=== PATIENT | male | born 1950 | race Caucasian/White ===

== ENCOUNTER → 2017-05-28 12:44 | Outpatient (CLI) | payer SELFPAY ==
[2011-05-18 10:24] VITALS: BMI 38.8
--- NOTE | 2017-05-28 14:26 | NUR ---
Nutrition education for pre/post of bariatric sugery: S: Pt reports he overeats at all meals. Pts cooks most meals at home. Pt likes to eat sweets and snacks throughout the day. Pts daughter had gastric sleeve surgery in [place] ~1 1/2 years ago and has lost ~97#. Pts son-in-law has had a gastic by-pass ~1 year ago. O: 67 year old male Ht: 5'11" Wt: 315# IBW: 178# +/-10% BMI: 43.9 PMH: sleep apnea, COPD, prediabetes, O2 at night, CAD s/p stents A: Reviewed pre/post op diet phases; reviewed sample menus; liquids between meals; no carbonated drinks, alcohol, straws, sweets, high fat foods; protein requirements; stomach size and pouch stretching; protein supplement guidelines. Pt with fair understanding of information provided. Pt may not be ready to make the necessary diet changes needed for long-term weight loss success. Advised pt to start decreasing his portions of food now to learn what hunger satisfied feels like. Pt also advised to start chewing food at least 20 times to slow down eating. Pts first goal wt was 169#. RDN advised pt that weight was not realistic and he changed his goal wt to 225#. Pt does verbalize understanding of diet changes post-op; however, RDN if not sure he fully understands the progression of the diet. Pts motivation for change appears to be high. P: Provided pt with printed diet information and RDN name and phone number. Pt may need additional diet instruction before surgery. RDN will be available if needed. Thank you for the consult.
== END ==
LOC: D.FANS 12:44
DX: Z01.812 Encounter for preprocedural laboratory examination (principal)

== ENCOUNTER → 2017-08-06 13:48 | Outpatient (CLI) | payer MEDICARE ==
[2011-05-18 10:24] VITALS: BMI 38.8
[~2017-08-06 13:48] MED LIST: APPLE CIDER VINEGAR PO; ASCORBIC ACID500 MG PO; ASPIRIN325 MG PO; BETAPACE 80 MG80 MG PO; BREO ELLIPTA 11 EACH INH; CINNAMON500 MG PO; COREG12.5 MG PO; FISH OIL 1,0001 CA1 PO; FOLATE0.4 MG PO; GALZIN50 MG PO; GARLIC PO; GINSENG PO; HYDROCODON-ACE1 EAC7 PO; LOVASTATIN10 MG PO; MULTI-DAY VITAM1 TAB PO; PROAIR HFA8.5 GM INH; PYRIDOXINE HCL100 MG PO; TESTOSTERON200 MG/ML IM; TUMS X-STR300 MG PO; VITAMIN B-122500 MCG PO; VITAMIN E200 UNI1 PO; [UNRECOGNIZED DRUG - REMARK] INH
[2017-09-16 20:43] VITALS: BMI 42.2
== END | disposition home or self-care (01) ==
LOC: D.RT 13:48
DX: J44.9 Chronic obstructive pulmonary disease, unspecified (principal)

== ENCOUNTER → 2017-08-09 10:12 | Outpatient (CLI) | payer MEDICARE ==
[2011-05-18 10:24] VITALS: BMI 38.8
[2017-09-16 20:43] VITALS: BMI 42.2
== END | disposition home or self-care (01) ==
LOC: D.LAB 10:00 → D.RAD 10:30
DX: E66.01 Morbid (severe) obesity due to excess calories (principal)

== ENCOUNTER 2017-08-14 06:03 | Day surgery (SDC) | payer MEDICARE ==
[2017-08-09 10:53] LABS: BASOPHILS 0.5 % (0-2); EOSINOPHILS 2.7 % (0-7); HEMATOCRIT 52.5 % (42.0-54.0); HEMOGLOBIN 17.4 g/dL (13.5-17.5); IMMATURE GRANULOCYTES 0.2 % (0-5); LYMPHOCYTES 22.9 % (15-50); MCH 30.7 pg (26.0-34.0); MCHC 33.1 g/dL (31.0-37.0); MCV 92.6 fL (80.0-100.0); MEAN PLATELET VOLUME 12.3 fL (7.4-10.4); MONOCYTES 6.7 % (2-11); PLATELET COUNT 110 10x3/uL (130-400); RBC 5.67 10x6/uL (4.20-6.10); RDW 15.3 % (11.5-14.5); WBC 5.9 10x3/uL (4.8-10.8)
[2017-08-09 11:20] LABS: ALBUMIN 3.8 g/dL (3.4-5.0); ANION GAP 8.8 mmol/L (8-16); BILIRUBIN - DIRECT 0.26 mg/dL (0.00-0.30); BILIRUBIN - INDIRECT 1.44 mg/dL (0.00-1.00); BILIRUBIN - TOTAL 1.7 mg/dL (0.2-1.3); CALCIUM 9.1 mg/dL (8.5-10.1); CARBON DIOXIDE 32.4 mmol/L (21.0-32.0); CHOL - HDL RATIO 4.5 ratio (2.3-4.9); CREATININE - SERUM 1.1 mg/dL (0.6-1.3); LDL-HDL RATIO 2.6 ratio (1.5-3.5); POTASSIUM - SERUM 4.2 mmol/L (3.5-5.1); PROTEIN - SERUM 7.3 g/dL (6.4-8.2); T4 THYROXINE 5.6 ug/dL (4.7-13.3); THYROID STIMULATING HORMONE 3.18 uIU/mL (0.36-3.74)
[2017-08-09 11:32] LABS: HELICOBACTER PYLORI IGG POSITIVE (NEGATIVE)
[2017-08-10 08:17] LABS: FOLATE (FOLIC ACID) - SERUM >20.0 ng/mL (>3.0)
[2017-08-12 06:07] LABS: VITAMIN D 25 HYDROXY 30.2 ng/mL (30.0-100.0)
[2017-08-14] MEDS ORDERED: COREG12.5 MG PO (07:48)
[2017-08-14] MEDS ORDERED: TESTOSTERON200 MG/ML IM (07:49)
[2017-08-14] MEDS ORDERED: BETAPACE 80 MG80 MG PO (07:49)
[2017-08-14] MEDS ORDERED: PROAIR HFA8.5 GM INH (07:50)
[2017-08-14] MEDS ORDERED: LOVASTATIN10 MG PO (07:50)
[2017-08-14] MEDS ORDERED: MULTI-DAY VITAM1 TAB PO (07:51)
[2017-08-14] MEDS ORDERED: CINNAMON500 MG PO (07:51)
[2017-08-14] MEDS ORDERED: PYRIDOXINE HCL100 MG PO (07:51)
[2017-08-14] MEDS ORDERED: GINSENG PO (07:52)
[2017-08-14] MEDS ORDERED: FISH OIL 1,0001 CA1 PO (07:53)
[2017-08-14] MEDS ORDERED: FOLATE0.4 MG PO (07:53)
[2017-08-14] MEDS ORDERED: GALZIN50 MG PO (07:54)
[2017-08-14 08:03] VITALS: BP 162/85; BMI 42.5
--- NOTE | 2017-08-14 12:11 | OP ---
PATIENT NAME: JASBIR PEREZ MEDICAL RECORD: [id number] :50 LOCATION:D.OPS ADMISSION DATE: SURGEON: RICK KIDD MD DATE OF OPERATION: 08/14/2017 SURGEON: Rick Kidd MD PREOPERATIVE DIAGNOSES: 1. Gastroesophageal reflux disease. 2. Morbid obesity. 3. Essential hypertension. 4. Coronary artery disease. POSTOPERATIVE DIAGNOSES: 1. Gastroesophageal reflux disease. 2. Morbid obesity. 3. Essential hypertension. 4. Coronary artery disease. PROCEDURE PERFORMED: Esophagogastroduodenoscopy with biopsy. ANESTHESIA: Total intravenous anesthesia. COMPLICATIONS: None. SPECIMENS: 1. Duodenum. 2. Antrum. 3. Stomach body. 4. Gastroesophageal junction. Case was contaminated. ESTIMATED BLOOD LOSS: Minimal. DESCRIPTION OF THE PROCEDURE: After consent was obtained, the patient was taken to the endoscopy suite. A bite block was placed. Hurricaine Purlear was administered. A timeout was taken to confirm the correct patient and procedure. Next, total intravenous anesthesia was given. The scope was inserted through the bite block. Under direct endoscopic vision, it was passed posterior to the epiglottis, through the esophagus, and into the stomach. The stomach was insufflated. The scope was advanced to the pylorus. The duodenum was intubated. The duodenum appeared grossly normal. Multiple cold biopsies were taken. The scope was withdrawn to the stomach. There was hcxy-ci-oejddqio antritis noted. Multiple cold biopsies were taken in the prepyloric and antral region. The patient had diffuse gastritis. Multiple cold biopsies were taken in the stomach body. Scope was retroflexed. There was no hiatal hernia noted. The scope was retracted to the GE junction. There was abnormalities at the Z line. There were multiple linear ulcerations consistent with esophagitis. Multiple cold biopsies were taken of the GE junction. The scope was inserted into the stomach. The stomach was desufflated. The esophagus was examined upon withdrawal of the scope. There was no abnormality of the esophagus identified. At this time, the procedure was terminated. The patient tolerated the procedure well. He was transferred to recovery room in satisfactory condition. OPERATIVE REPORT [id number] JASBIR PEREZ TRANSINT:[id number] Voice Confirmation ID: [id number] DOCUMENT ID: [id number] RICK KIDD MD at 1211 CC: [id number] DICTATION DATE: 08/14/17 0845 DIRECTOR GLOBAL SALES: 08/14/17 0955 [facility] 08/14/17 [facility] [address] [id number]
== END 2017-08-14 10:34 | disposition home or self-care (01) ==
LOC: D.OPS 06:03
PROVIDERS: Surgery
DX: K21.9 Gastro-esophageal reflux disease without esophagitis (principal); K29.50 Unspecified chronic gastritis without bleeding; B96.81 Helicobacter pylori [H. pylori] as the cause of diseases classified elsewhere; E66.01 Morbid (severe) obesity due to excess calories; I10 Essential (primary) hypertension; I25.10 Atherosclerotic heart disease of native coronary artery without angina pectoris; Z01.812 Encounter for preprocedural laboratory examination

== ENCOUNTER 2017-09-16 09:20 | Inpatient (IN) | payer MEDICARE ==
[2017-09-13 09:40] LABS: HEMATOCRIT 51.5 % (42.0-54.0); HEMOGLOBIN 17.2 g/dL (13.5-17.5); MCH 30.6 pg (26.0-34.0); MCHC 33.4 g/dL (31.0-37.0); MCV 91.6 fL (80.0-100.0); MEAN PLATELET VOLUME 12.9 fL (7.4-10.4); RBC 5.62 10x6/uL (4.20-6.10); WBC 6.4 10x3/uL (4.8-10.8)
[~2017-09-16] VITALS: Ht 180.3 cm; Wt 137.3 kg
[2017-09-16] VITALS (11 sets, daily range): BP systolic 138–169; BP diastolic 69–91; Ht 180.3 cm; Wt 137.3 kg
[~2017-09-16 09:20] MED LIST changes: -APPLE CIDER VINEGAR PO; -ASCORBIC ACID500 MG PO; -ASPIRIN325 MG PO; -BREO ELLIPTA 11 EACH INH; -GARLIC PO; -HYDROCODON-ACE1 EAC7 PO; -TUMS X-STR300 MG PO; -VITAMIN B-122500 MCG PO; -VITAMIN E200 UNI1 PO; -[UNRECOGNIZED DRUG - REMARK] INH
[2017-09-16] MEDS ORDERED: ASCORBIC ACID500 MG PO (12:38)
[2017-09-16] MEDS ORDERED: GARLIC PO (12:38)
[2017-09-16] MEDS ORDERED: VITAMIN B-122500 MCG PO (12:39)
[2017-09-16] MEDS ORDERED: ASPIRIN325 MG PO (12:39)
[2017-09-16] MEDS ORDERED: TUMS X-STR300 MG PO (12:40)
[2017-09-16] MEDS ORDERED: BREO ELLIPTA 11 EACH INH (12:41)
[2017-09-16] MEDS ORDERED: APPLE CIDER VINEGAR PO (12:41)
[2017-09-16] MEDS ORDERED: [UNRECOGNIZED DRUG - REMARK] INH (12:42)
[2017-09-16] MEDS ORDERED: VITAMIN E200 UNI1 PO (12:43)
--- NOTE | 2017-09-16 16:51 | NUR ---
SPIKE OUT AT 1625. CHIP RELEIVED [id number]
--- NOTE | 2017-09-16 19:00 | NUR ---
REC'D FROM PACU PER BED TO ROOM 2217 A 67 Y/O W/M PER SERVICES DR. KIDD POST OP GASTRIC SLEEVE. ASSESSMENT PER FLOWSHEET. LAP SITES TO ABDOMEN X5 C/D/I. IV PATENT LEFT HAND OF LR AT 100CC'S/HR SITE CLEAR. PONY ROUGHER OF MORPHINE SET UP WITH SETTINGS AT1MG Q10MIN W/10MG Q4H L/O. O2 ON AT 3L/M PER NC. O2 SAT RUNNING 89-90%. FAMILY MEMBERS AT BEDSIDE. SCD'S PLACED TO PATIENT'S LOWER LEGS. SR UP X2 CALL LIGHT WITHIN REACH.
--- NOTE | 2017-09-16 22:00 | NUR ---
UP AT BEDSIDE PT VOIDED 50CC'S YELLOW URINE INTO URINAL. AMBULATED X3 LAPS AROUND UNIT. TOLERATED WELL. O2 SAT INCREASED TO 92%. WITH O2 AT 4L/M PER NC.
--- NOTE | 2017-09-16 23:00 | NUR ---
PT'S CPAP ON WITH USE OF O2. BEDSIDE UPDRAFT GIVEN BY RT ESTELA GIVENS. WILL CONTINUE TO MONITOR.
--- NOTE | 2017-09-17 | NUR ---
EYES CLOSED RESPIRATION WITH EASE AND UNLABORED. HOB UP 30 DEGREES. SR UP X2 CALL LIGHT WITHIN REACH.
[2017-09-17 00:45] VITALS: BP 153/88
--- NOTE | 2017-09-17 01:39 | NUR ---
RESTING QUIETLY DENIES NEEDS.
[2017-09-17 04:00] VITALS: BP 167/66
[2017-09-17 06:12] LABS: BASOPHILS 0.1 % (0-2); EOSINOPHILS 0 % (0-7); HEMATOCRIT 49.5 % (42.0-54.0); HEMOGLOBIN 16.6 g/dL (13.5-17.5); IMMATURE GRANULOCYTES 0.2 % (0-5); LYMPHOCYTES 5.5 % (15-50); MCH 30.5 pg (26.0-34.0); MCHC 33.5 g/dL (31.0-37.0); MEAN PLATELET VOLUME 12.5 fL (7.4-10.4); MONOCYTES 5.8 % (2-11); NEUTROPHILS 88.4 % (40-80); PLATELET COUNT 118 10x3/uL (130-400); RBC 5.44 10x6/uL (4.20-6.10); RDW 15.3 % (11.5-14.5); WBC 13.4 10x3/uL (4.8-10.8)
[2017-09-17 06:45] LABS: ALBUMIN 3.4 g/dL (3.4-5.0); ALKALINE PHOSPHATASE 50 U/L (46-116); ALT (SGPT) 59 U/L (10-68); BILIRUBIN - TOTAL 1.85 mg/dL (0.2-1.3); CALC OSMOLALITY 281 mosm/kg (275-300); CALCIUM 8.6 mg/dL (8.5-10.1); CARBON DIOXIDE 26.5 mmol/L (21.0-32.0); CHLORIDE - SERUM 102 mmol/L (98-107); GLUCOSE 131 mg/dL (74-106); POTASSIUM - SERUM 4.2 mmol/L (3.5-5.1); PROTEIN - SERUM 6.9 g/dL (6.4-8.2); SODIUM 138 mmol/L (136-145); UREA NITROGEN 23 mg/dL (7-18); eGFR NON AFRICAN AMERICAN 79 mL/min (90-120)
--- NOTE | 2017-09-17 07:50 | NUR ---
REPORT RECEIVED FROM JM MATHIS.
--- NOTE | 2017-09-17 08:23 | NUR ---
ASSESSMENT COMPLETED. AM MEDS ADMINISTERED. SCDs TO BLE. CALL LIGHT IN REACH. WILL CONTINUE WITH PLAN OF CARE.
--- NOTE | 2017-09-17 09:44 | OP ---
PATIENT NAME: JASBIR PEREZ MEDICAL RECORD: [id number] :50 LOCATION:D.MS [facility]17 ADMISSION DATE:09/16/17 SURGEON: RICK KIDD MD DATE OF OPERATION: 09/16/2017 SURGEON: Rick Kidd MD PREOPERATIVE DIAGNOSES: 1. Morbid obesity. 2. Obstructive sleep apnea. 3. Essential hypertension. 4. Body mass index 40-44.9. 5. Coronary artery disease. 6. Chronic obstructive pulmonary disease. POSTOPERATIVE DIAGNOSES: 1. Morbid obesity. 2. Obstructive sleep apnea. 3. Essential hypertension. 4. Body mass index 40-44.9. 5. Coronary artery disease. 6. Chronic obstructive pulmonary disease. PROCEDURE PERFORMED: Laparoscopic vertical sleeve gastrectomy. SOAKER: Dr. Too Petit ANESTHESIA: General. COMPLICATIONS: None. SPECIMENS: Partial gastrectomy. ESTIMATED BLOOD LOSS: 20 cc. Case is clean contaminated. OPERATIVE COURSE: After consent was obtained, the patient was taken to the operating room and placed in the supine position on the operating table. Next, general anesthesia was given via endotracheal intubation after a timeout was performed to confirm the correct patient and procedure. The abdomen was then prepped and draped in the typical sterile fashion. Local anesthetic was injected just above the umbilicus. A stab incision was made with an 11-blade scalpel. Using an 11-mm bladeless optical trocar, the abdomen was entered under direct laparoscopic vision. Adequate pneumoperitoneum was achieved. The patient was placed in the steep reverse Trendelenburg position. At this time, all remaining trocars were placed after the administration of local anesthetic, a 12-mm and 5-mm trocar into the right lateral quadrant, two 5-mm trocars into the left lateral quadrant, Astrid liver retractor in the subxiphoid position. The left lobe of liver was grasped and retracted exposing the gastroesophageal junction. The pylorus was identified. Starting at 6 cm proximal from pylorus, the short gastrics were taken using the Harmonic scalpel along the length of the greater curvature to the level of the left crura. Once this was complete, a 40-Albanian ViSiGi bougie was passed transorally. It was passed through the pylorus and placed to suction. The sleeve gastrectomy was then performed using OPERATIVE REPORT [id number] JASBIR PREEZ the power linear cutting EMILIE stapler with 6 firings of the gold load stapler. The stapler was fired along the length of the 40-Albanian ViSiGi device. Once the stomach was transected, it was placed in the left paracolic gutter. The proximal staple line was then imbricated using 3-0 Stratafix PDS plus suture. A bowel clamp was placed across the first portion of the duodenum. The upper abdomen was filled with water. The ViSiGi device was used to inflate the stomach. There was no evidence of leak. At this time, the ViSiGi placed back to suction and once the suction was turned off, the ViSiGi device was removed. The abdomen was then again copiously irrigated and suctioned. The Astrid liver retractor was removed under direct laparoscopic vision. The stomach was then grasped and removed through the 12-mm trocar site and sent for permanent pathology. At this time, the abdomen was again inspected. No evidence of bowel injury. No evidence of bleeding. The area was irrigated and suctioned. The 12-mm and 11-mm trocar sites were closed using an 0 Vicryl suture and a Gio-Vicente suture passer under direct laparoscopic vision. At this time, all remaining instruments were removed. The abdomen was desufflated. Trocars were then removed. Skin was closed with 4-0 Monocryl, Mastisol and Steri-Strips. At the end of the case, all needle and instrument counts were correct. No complications occurred. The patient was extubated and transferred to the PACU in stable condition. TRANSINT:[id number] Voice Confirmation ID: [id number] DOCUMENT ID: [id number] RICK KIDD MD at 0944 CC: [id number] DICTATION DATE: 09/16/17 1754 FUR MIXER OPERATOR: 09/17/17 0016 ADM IN [id number] [place] [address]
--- NOTE | 2017-09-17 10:30 | NUR ---
INSTRUCTED PATIENT TO AMBULATE IN HALLWAY MUCH POSSIBLE. ALSO DISCUSSED DIET WITH HIM AGAIN. FORGESMITH SPOKE WITH HIM ABOUT THIS MORNING ALSO.
[2017-09-17] MEDS ORDERED: HYDROCODON-ACE1 EAC7 PO (11:16)
--- NOTE | 2017-09-17 11:17 | NUR ---
NUTRITION F/U SPOKE WITH NURSING, PT REQUESTING INFO FOR POST BARIATRIC DIET. INSTRUCTED PT ON FIRST 3 PHASES OF DIET, PROVIDED WRITTEN MATERIAL FROM RESIDENTIAL THERAPIST WORKBOOK. PIETRO FOLLOWING
--- NOTE | 2017-09-17 12:45 | NUR ---
DC INSTRUCTIONS EXPLAINED TO PATIENT. VERBALIZED UNDERSTANDING. IV DC'D WITH TIP INTACT.
[2017-09-17 13:08] VITALS: BP 159/85
--- NOTE | 2017-09-17 13:40 | NUR ---
SITTING UP IN CHAIR AT BEDSIDE. DENEIES NEEDS. NO C/O PAIN OR DISCOMFORT AT THIS TIME. WAITING FOR DISCHARGE.
--- NOTE | 2017-09-17 14:25 | NUR ---
RX HANDED TO PATIENT. DC'D TO VEHICLE VIA WC WITH DAUGHTER.
--- NOTE | 2017-09-17 15:43 | OP ---
PATIENT NAME: JASBIR PEREZ MEDICAL RECORD: [id number] :50 LOCATION:D.MS [facility]17 ADMISSION DATE:09/16/17 SURGEON: ROSANNA BRITO MD DATE OF OPERATION: 09/16/2017 FAN BLADE TRUER'S NOTE. I assisted Dr. MYLENE Kidd with laparoscopic sleeve gastrectomy for morbid obesity. I was present for all of the critical portions of the operation. I scrubbed in as the trocars were being inserted. My involvement in the operation included, but was not limited to, insertion of the trocars, manipulation and retraction of tissues, dissection along the greater curve of the stomach with the Harmonic scalpel, some blunt dissection, assistance with placing the Astrid retractor, retraction of tissues while Dr. Kidd stapled, assistance with the suturing by retracting the suture, irrigation and aspiration, assistance with removal of the gastrectomy specimen, closure of several of the trocars sites. I was present until the last sutures were placed closing the trocar sites and the dressings were being applied. TRANSINT:[id number] Voice Confirmation ID: [id number] DOCUMENT ID: [id number] ROSANNA BRITO MD at 1543 CC: RICK KIDD MD [id number] DICTATION DATE: 09/16/171817 EXTERIOR DOOR INSTALLER: 09/16/17 4271 DIS IN 09/17/17 [facility] [address] [place] [address]
== END 2017-09-17 14:25 | disposition home or self-care (01) | DRG 621 ==
LOC: D.SDCHOLD 09:20 → D.MS 09:20 → D.SDCHOLD 11:45 → D.MS 19:05
PROVIDERS: Anesthesiology; ADMIT Surgery
PROC: 0DB64Z3 Excision of Stomach, Percutaneous Endoscopic Approach, Vertical (ICD-10-PCS; principal; 2017-09-16 11:45)
DX: E66.01 Morbid (severe) obesity due to excess calories (principal); Z68.41 Body mass index [BMI] 40.0-44.9, adult; G47.33 Obstructive sleep apnea (adult) (pediatric); I10 Essential (primary) hypertension; I25.10 Atherosclerotic heart disease of native coronary artery without angina pectoris; J44.9 Chronic obstructive pulmonary disease, unspecified

== ENCOUNTER → 2017-12-06 11:04 | Outpatient (CLI) | payer MEDICARE ==
[2017-09-16 20:43] VITALS: BMI 42.2
[~2017-12-06 11:04] MED LIST changes: +APPLE CIDER VINEGAR PO; +ASCORBIC ACID500 MG PO; +ASPIRIN325 MG PO; +BREO ELLIPTA 11 EACH INH; +GARLIC PO; +HYDROCODON-ACE1 EAC7 PO; +TUMS X-STR300 MG PO; +VITAMIN B-122500 MCG PO; +VITAMIN E200 UNI1 PO; +[UNRECOGNIZED DRUG - REMARK] INH
[2017-12-06 11:44] LABS: BASOPHILS 0.3 % (0-2); EOSINOPHILS 1.2 % (0-7); HEMATOCRIT 43.5 % (42.0-54.0); HEMOGLOBIN 14.9 g/dL (13.5-17.5); IMMATURE GRANULOCYTES 0.3 % (0-5); LYMPHOCYTES 22.1 % (15-50); MCH 30.7 pg (26.0-34.0); MCHC 34.3 g/dL (31.0-37.0); MCV 89.7 fL (80.0-100.0); MEAN PLATELET VOLUME 12.8 fL (7.4-10.4); MONOCYTES 8.5 % (2-11); NEUTROPHILS 67.6 % (40-80); PLATELET COUNT 104 10x3/uL (130-400); RBC 4.85 10x6/uL (4.20-6.10); RDW 16.9 % (11.5-14.5); WBC 5.9 10x3/uL (4.8-10.8)
[2017-12-06 11:51] LABS: CREATININE - SERUM 0.9 mg/dL (0.6-1.3)
== END | disposition home or self-care (01) ==
LOC: D.LAB 11:04
PROVIDERS: Surgery
DX: I10 Essential (primary) hypertension (principal); E66.01 Morbid (severe) obesity due to excess calories; K21.9 Gastro-esophageal reflux disease without esophagitis; J44.9 Chronic obstructive pulmonary disease, unspecified

== ENCOUNTER → 2018-01-28 19:26 | Outpatient (CLI) | payer MEDICARE ==
[2017-09-16 20:43] VITALS: BMI 42.2
== END | disposition home or self-care (01) ==
LOC: D.SLEEP 19:26
DX: G47.33 Obstructive sleep apnea (adult) (pediatric) (principal)

== ENCOUNTER → 2018-04-18 12:52 | Outpatient (CLI) | payer MEDICARE ==
[2017-09-16 20:43] VITALS: BMI 42.2
== END | disposition home or self-care (01) ==
LOC: D.MRI 12:52
DX: M25.512 Pain in left shoulder (principal)

== ENCOUNTER → 2018-06-27 11:08 | Outpatient (CLI) | payer MEDICARE ==
[2017-09-16 20:43] VITALS: BMI 42.2
== END | disposition home or self-care (01) ==
LOC: D.LAB 08:00 → D.CT 11:30
DX: J84.9 Interstitial pulmonary disease, unspecified (principal); J44.9 Chronic obstructive pulmonary disease, unspecified

== ENCOUNTER 2018-09-04 07:55 | Day surgery (SDC) | payer MEDICARE ==
[2018-09-03 15:29] LABS: HEMATOCRIT 44.7 % (42.0-54.0); HEMOGLOBIN 15.6 g/dL (13.5-17.5); MCH 31.6 pg (26.0-34.0); MCHC 34.9 g/dL (31.0-37.0); MCV 90.5 fL (80.0-100.0); MEAN PLATELET VOLUME 12.5 fL (7.4-10.4); RBC 4.94 10x6/uL (4.20-6.10); RDW 14.4 % (11.5-14.5); WBC 6.5 10x3/uL (4.8-10.8)
[~2018-09-04] VITALS: Ht 180.3 cm; Wt 95.3 kg
--- NOTE | ~2018-09-04 | OP ---
PATIENT NAME: JASBIR PEREZ MEDICAL RECORD: [id number] :50 LOCATION:K[facility] ADMISSION DATE: SURGEON: RICK PADRON MD DATE OF OPERATION: 09/04/2018 PREOPERATIVE DIAGNOSIS: Rotator cuff tear of the left shoulder with impingement syndrome. POSTOPERATIVE DIAGNOSIS: Rotator cuff tear of the left shoulder with impingement syndrome. PROCEDURES: 1. Arthroscopic rotator cuff repair of the left shoulder. 2. Arthroscopic distal clavicle excision done through separate incision -- 1 cm. 3. Arthroscopic subacromial decompression, acromioplasty, and bursectomy. SURGEON: Rick Padron MD ANESTHESIA: General. INTRAOPERATIVE COMPLICATIONS: None. SUMMARY OF PATHOLOGIC FINDINGS: The patient did have a large rotator cuff tear of the supraspinatus tendon; however, it was fixable arthroscopically. OPERATIVE SUMMARY IN DETAIL: After obtaining the appropriate preoperative orthopedic surgery consent as well as anesthetic consultation, evaluation, and clearance, the patient was brought to the operating room and placed on the operating table in supine position. After adequate general laryngeal mask airway was administered, the patient was placed in right lateral decubitus position. All pressure points well padded to include down leg peroneal pad as well as axillary roll. The patient was held firmly to the operating table using the vacuum pack suction system. Left upper extremity and shoulder were then prepped and draped in routine sterile fashion. The arm was held in the Arthrex traction boom at 30 degrees of forward flexion, 30 degrees of abduction with 10 pounds traction laterally. Arthroscopy was established in the glenohumeral joint from posterior portal. Anterior portal was established in anterior safe interval. Diagnostic arthroscopy did reveal the above findings. A transarthroscopic rotator cuff portal was created through which the inferior aspect of the rotator cuff tear was debrided and supraspinatus tendinous footprint of the articular aspect was decorticated. Attention was then turned to the subacromial space. While on subacromial space, Arthrex tissue ablation system was utilized to denude the undersurface of the acromion of all soft tissue elements and release the coracoacromial ligament. A 5-0 barrel bur was used to perform acromioplasty at the level of acromioclavicular joint through a separate arthroscopic anterior portal, distal clavicle was excised for 1 cm. Having completed this, attention was turned to the rotator cuff. Further decortication was carried out in the supraspinatus tendinous footprint. At this point, a single FiberTape was placed in an inverted mattress fashion and then anchored laterally with a 5.5 SwiveLock. Anterior dog ear was then treated with the suture from the 5.5 SwiveLock again in a double pulled fashion with 2 limbs passed through the rotator cuff and it too was anchored using a 4.75 SwiveLock. Having completed this, arthroscopy portals were closed in routine interrupted fashion using 4-0 Prolene. Sterile dressings were applied. The patient was OPERATIVE REPORT [id number] JASBIR PEREZ awakened, taken to recovery room in stable condition. All final needle and sponge counts were correct. TRANSINT:[id number] Voice Confirmation ID: [id number] DOCUMENT ID: [id number] NEREIDA LOMAX, RICK VENTURA at 1312 CC: [id number] DICTATION DATE: 09/05/18 1358 COMMUNICATIONS DEPARTMENT CHAIRPERSON: 09/05/18 1521 [facility] 09/04/18 [id number] [place] [address]
[~2018-09-04 07:55] MED LIST changes: +CALCIUM 600 +1 EAC3 PO; +COREG 3.1253.125 MG PO; +FERROUS SULFAT140 MG; +FOLIC ACID1 MG PO; +MAGNESIUM OXID250 MG PO; +REVATIO20 MG PO; +VITAMIN E400 UNI2 PO; +ZINC50 MG
[2018-09-04 08:32] VITALS: BP 101/36; Ht 180.3 cm; Wt 95.3 kg
[2018-09-04] MEDS ORDERED: NORCO 10-325 TA1 TAB PO (11:37)
== END 2018-09-04 15:16 | disposition home or self-care (01) ==
LOC: D.OPS 07:55 → D.PAN 10:00 → D.OPS 10:15
PROVIDERS: Anesthesiology
DX: M75.102 Unspecified rotator cuff tear or rupture of left shoulder, not specified as traumatic (principal); M75.42 Impingement syndrome of left shoulder; Z01.812 Encounter for preprocedural laboratory examination

== ENCOUNTER → 2018-12-17 08:30 | Outpatient (CLI) | payer MEDICARE ==
[2018-09-04 08:32] VITALS: BMI 29.3
--- NOTE | ~2018-12-17 | ST ---
PATIENT:JABSIR PEREZ MEDICAL RECORD: [id number] SEX: M LOCATION[facility] ORDER #: ADMISSION DATE: 12/17/18 AGE OF PATIENT: 68 REFERRING PHYSICIAN: INTERPRETING PHYSICIAN: KAYLEY DINH MD DATE OF SERVICE: 12/17/2018 PROCEDURE: Nuclear stress test. INDICATION: Angina, coronary artery disease, hypertension, and hyperlipidemia. He was exercised on standard Ambrosio protocol for 9 minutes achieving greater than 85% max target heart rate response with 33 mCi of sestamibi injected at peak stress, 11 mCi were used previously for rest images. FINDINGS: Gated SPECT reveals a preserved ejection fraction at 53% with good wall motioning with decreased wall motioning, thickening, and brightening throughout the inferior segments. SPECT imaging: Cardiolite was used as myocardial perfusion agent. There is a large fixed perfusion defect inferiorly, apically, and laterally. It is compatible with an extensive inferoapical and lateral myocardial infarction. It is very little in the way of reversible ischemia. It is in the lateral aspect making this a mixed perfusion defect. The remaining segments with homogeneous uptake at rest and stress. OVERALL IMPRESSION: This is an abnormal nuclear stress test with a large perfusion defect, mostly fixed, some reversibility inferiorly, apically, and laterally. In this patient with no history of previous myocardial infarction, the current scan suggests the presence of hemodynamically significant coronary artery disease as well as a previous myocardial infarction with ongoing symptomatology. Would proceed with coronary angiography as followup study. TRANSINT:[id number] Voice Confirmation ID: [id number] DOCUMENT ID: [id number] KAYLEY DINH MD CC: CASA SHERIFF [id number] DICTATION DATE: 12/19/18 1232 GEEK SQUAD AGENT: 12/20/18 0038 DEP CLI 12/17/18 [facility] [address] [place] [address]
[~2018-12-17 08:30] MED LIST changes: +NORCO 10-325 TA1 TAB PO
== END | disposition home or self-care (01) ==
LOC: D.HCCARDIO 08:30
PROVIDERS: ATTEND Internal Medicine Interventional Cardiology
DX: I20.9 Angina pectoris, unspecified (principal)

== ENCOUNTER 2018-12-30 08:00 | Outpatient (CLI) | payer MEDICARE ==
[~2018-12-30] VITALS: Ht 180.3 cm; Wt 92.3 kg
--- NOTE | ~2018-12-30 | HEMODYNAMI ---
PATIENT:JASBIR PEREZ MEDICAL RECORD: [id number] : 50 LOCATION:[facility] ADMISSION DATE: 12/30/18 Generatedon:12/30/201810:03 Patient name: JASBIR PEREZ Patient #: [id number] SSN: : Date of study: 12/30/2018 Page: Of Hemodynamic Procedure Report Patient Data Patient Demographics Procedure consent was obtained First Name: JASBIR Gender: Male Last Name: CHRIS : 1950 Middle Initial: BRYAN Age: 68 year(s) Patient #: [id number] Race: Unknown Additional ID: [id number] Contact details Address: [address] [place] [address] State: [place] City: [place] Zip code: [address] Past Medical History Allergies: No known allergies Admission Admission Data Admission Date: 12/30/2018 Admission Time: 8:00 Admit Source: Other Weight (lbs.): 203.27 Weight (kg.): 92.2 Lab Results Lab Result Date: 12/30/2018 Lab Result Time: 8:25 Biochemistry Name Units Result Min Max BUN mg/dl 19 --(----)*- 7 18 Creatinine mg/dl 0.8 --(-*--)-- 0.6 1.3 CBC Name Units Result Min Max Hematocrit % 43.2 --(*---)-- 42 54 Hemoglobin g/dl 15.2 --(-*--)-- 13.5 17.5 Procedure Procedure Types Cath Procedure Diagnostic Procedure [facility] PCI Procedure Coronary Stent Coronary Stent Initial Procedure Description Procedure Date Procedure Date: 12/30/2018 Procedure Start Time: 9:48 Procedure End Time: 10:02 Procedure Staff Name Function Arnold Gardner MD Performing Physician Tucker Nieves RT Monitor Remigio Rubio RN Nurse Judson Chambers RT Daycare Director Vy Celaya RT Scrub Procedure Data Cath Procedure Fluoroscopy Diagnostic fluoroscopy Total fluoroscopy Time: 4.8 time: 4.8 min min Diagnostic fluoroscopy Total fluoroscopy dose: dose: 194.81 mGy 194.81 mGy Contrast Material Contrast Material Type Amount (ml) Isovue 300 65 Entry Location Entry Primary Successful Side Size Upsize Upsize Entry Closure Succes sful Closure Location (Fr) 1 (Fr) 2 (Fr) Remarks Device Remarks Femoral Right 7 Fr Exoseal artery Short Estimated blood loss: 10 ml Procedure Complications No complications Procedure Medications Medication Administration Route Dosage 0.9% NaCl I.V. 100 ml/hr Oxygen etCO2 Nasal cannula 2 l/min Heparin Flush Bag added to field 2 bags (1000units/500ml NS) Lidocaine 2% added to field 20 Versed I.V. 2 mg Fentanyl I.V. 100 mcg Versed I.V. 2 mg Heparin Bolus I.V. 4000 units Hemodynamics Rest HGB: 15.2 (g/dl) Heart Rate: 47 (bpm) Snapshots Pre Cath Intra NCS Post Cath Vital Signs Time Heart Resp SPO2 etCO2 NIBP (mmHg) Rhythm Pain Sedation Rate (ipm) (%) (mmHg) Status Level (bpm) 9:22:41 47 11 98 0 128/68(107) NSR 0 (11) 10(A) , No pain 9:27:09 49 17 99 0 126/72(107) NSR 0 (11) 10(A) , No pain 9:31:37 41 13 92 0 122/67(108) NSR 0 (11) 10(A) , No pain 9:36:00 51 18 94 0 114/65(93) NSR 0 (11) 10(A) , No pain 9:40:22 55 18 94 0 113/65(91) NSR 0 (11) 10(A) , No pain 9:44:42 47 17 97 0 109/64(82) NSR 0 (11) 10(A) , No pain 9:49:02 48 18 97 0 103/57(83) NSR 0 (11) 9(A) , No pain 9:53:20 52 14 95 0 105/64(92) NSR 0 (11) 9(A) , No pain 9:57:28 58 15 96 0 106/62(93) NSR 0 (11) 9(A) , No pain 10:01:48 51 15 97 0 108/58(86) NSR 0 (11) 9(A) , No pain Medications Time Medication Route Dose Verified Delivered Reason Notes Effectiveness by by 9:20:26 0.9% NaCl I.V. 100 Remigio Remigio Per physician ml/hr Joanne Rubio RN RN 9:20:49 Oxygen etCO2 2 Remigio Remigio for low 02 sats Nasal l/min Joanne Rubio cannula RN RN 9:21:03 Heparin Flush added 2 Remigio Remigio used for Bag to bags Joanne Rubio procedure (1000units/500ml field RN RN NS) 9:21:14 Lidocaine 2% added 20ml Remigio Remigio for local to vial Joanne Rubio anesthetic field RN RN 9:42:24 Versed I.V. 2 mg Remigio Remigio for sedation Joanne Rubio RN RN 9:42:32 Fentanyl I.V. 100 Remigio Remigio for sedation mcg Joanne Rubio RN RN 9:45:40 Versed I.V. 2 mg Remigio Remigio for sedation Joanne Rubio RN RN 9:51:54 Heparin Bolus I.V. 4000 Remigio Remigio for units Joanne Rubio anticoagulation RN [employer] Log Time Note 9:00:48 Judson Chambers RT(R) sent for patient. Start room use. 9:06:15 Procedure type changed to Cath procedure, Diagnostic procedure, LHC, PCI procedure, Coronary Stent, Coronary Stent Initial 9:07:46 Admit Source: Other 9:07:47 Diagnostic Cath status Elective 9:07:54 Time tracking: Regular hours (M-F 7:00 - 5:00) 9:07:57 Plan of Care:Hemodynamics will remain stable., Cardiac rhythm will remain stable., Comfort level will be maintained., Respiratory function will remain adequate., Patient/ family verbilizes understanding of procedure., Procedure tolerated without complication., Recovers from procedure without complications.. 9:08:12 H&P Date Dictated: 12/29/2018 New H&P dictated by physician.. 9:10:11 Patient received from Pre/Post Procedure Room to CCL 3 Alert and oriented. Tansferred to table in Supine position. 9:10:12 Warm blankets applied, and elizabeth hugger turned on for patient comfort. 9:10:12 Correct patient and procedure confirmed by team. 9:10:14 Signed procedure consent form obtained from patient. 9:10:15 ECG and BP/O2 sat monitors applied to patient. 9::16 Pre-procedure instructions explained to patient. 9::16 Pre-op teaching completed and patient verbalized understanding. 9::17 Family in waiting room. 9::18 Patient NPO since Midnight. 9:20:26 0.9% NaCl 100 ml/hr I.V. was administered by Remigio Rubio RN; Per physician; 9:20:49 Oxygen 2 l/min etCO2 Nasal cannula was administered by Remigio Rubio RN; for low 02 sats; 9:21:03 Heparin Flush Bag (1000units/500ml NS) 2 bags added to field was administered by Remigio Rubio RN; used for procedure; 9::14 Lidocaine 2% 20ml vial added to field was administered by Remigio Rubio RN; for local anesthetic; 9::19 Vital chart was started 9::17 Baseline sample Acquired. 9:22:22 Rhythm: sinus bradycardia 9:22:23 Full Disclosure recording started 9::22 Patient allergic to No known allergies 9:26:55 Is the patient allergic to Iodine/contrast media? No. 9:26:57 Is patient on blood thinner?Yes 9:26:59 ACC The patient was administered the following blood thiners within the last 24 hours: ACCPlavix 9:27:01 Patient diabetic? No. 9:27:04 Previous problem with sedation/anesthesia? No ? 9:27:06 Snore? Yes 9:27:07 Sleep apnea? No 9:27:07 Deviated septum? No 9:27:08 Opens mouth fully? Yes 9:27:09 Sticks out tongue? Yes 9:27:10 Airway obstruction? No ? 9:27:18 Dentures? No ? 9:27:21 Pre procedure: right dorsailis pedis pulse 2+ Normal; easily identifiable; not easily obliterated 9:27:26 Patient pain scale 0/10 ?. 9:27:31 IV patent on arrival in left forearm with 0.9% NaCl at [facility]. 9:28:09 Lab Result : BUN 19 mg/dl 9::09 Lab Result : Creatinine 0.8 mg/dl 9::09 Lab Result : Hemoglobin 15.2 g/dl 9::09 Lab Result : Hematocrit 43.2 % 9:28:11 Lab results completed and on chart. 9:28:14 Right groin area was prepped with chlora-prep and draped in sterile fashion 9:28:15 Alarms reviewed by R. N. 9:28:15 Sharps counted by scrub and verified by R.N. 9:28:18 ACIST Syringe (36993) opened to sterile field. 9:28:19 Bag Decanter (2002S) opened to sterile field. 9:28:19 Medline Cath Pack ([id number]) opened to sterile field. 9:28:20 ACIST Hand Control (12605) opened to sterile field. 9:28:20 ACIST Manifold (21709) opened to sterile field. 9:28:21 Tegaderm 4 x 4 (1626W) opened to sterile field. 9:28:23 DIAGNOSTIC WIRE .035 260cm J wire (965266) opened to sterile field. 9:28:31 SHEATH 7FR [place] (YJX504) opened to sterile field. 9:28:39 INFLATOR Merit BasixCompak (KG6363) opened to sterile field. 9:28:39 CHOICE PT Extra Support 182cm wire ([id number]) opened to sterile field. 9:28:44 Physician paged 9:28:51 Patient Weight : 203.27 lbs 9:41:43 Zero performed for pressure channel P1 9:41:45 Physician arrived 9:41:46 --------ALL STOP TIME OUT------ 9:41:46 Final Timeout: patient, procedure, and site verified with staff and physician. All members of the team are in agreement. 9:41:48 Right groin site verified by team. 9:41:50 Maximum allowable Isovue 300 dose 300ml. Physician notified. (300ml for normal creatinines. For patients with creatinine of 1.7 or higher multiply weight(kg) x 5 divided by creatinine.) 9:41:53 Fire Safety Assessment: A--An alcohol-based skin anteseptic being used preoperatively., C--Open oxygen or nitrous oxide is being used., D--An ESU, laser, or fiber-optic light is being used. 9:42:03 Physical assessment completed. ASA score P 2 - A patient with mild systemic disease as per Arnold Gardner MD. 9:42:06 Sedation plan: IV Moderate Sedation Medication:Versed, Fentanyl 9:42:24 Versed 2 mg I.V. was administered by Remigio Rubio RN; for sedation; 9:42:32 Fentanyl 100 mcg I.V. was administered by Remigio Rubio RN; for sedation; 9:45:40 Versed 2 mg I.V. was administered by Remigio Rubio RN; for sedation; 9:48:10 Procedure started. 9:48:13 Local anesthetic to right femoral artery with Lidocaine 2% by Arnold Gardner MD.INITIAL ACCESS ONLY 9:48:20 A 7 Fr Short sheath was inserted into the Right Femoral artery 9:50:07 GUIDE 7FR HS I SH catheter ([id number]) opened to sterile field. 9:50:16 7 Fr HS 1 SH guide catheter was inserted over the wire 9:50:22 CHOICE PT ES wire advanced. 9:51:04 Wire advanced across lesion. 9:51:54 Heparin Bolus 4000 units I.V. was administered by Remigio Rubio RN; for anticoagulation; 9:52:16 The GOKUL RX 3.5 x 38 stent ([id number]) was advanced then removed because of failure to cross lesion 9:52:58 Wire removed. 9:53:00 Guide catheter removed. 9:53:08 GUIDE 7FR AR 2.0 SH catheter ([id number]) opened to sterile field. 9:53:20 7 Fr AR 2 SH guide catheter was inserted over the wire 9:54:32 CHOICE PT ES wire advanced. 9:54:38 Wire advanced across lesion. 9:55:19 Inflate balloon Inflation number: 1 A EUPHORA 3.5 x 30 Balloon ([id number]) was prepped and advanced across the Prox RCA1, then inflated to 17 ZULAY for 0:10 (min:sec). 9:55:32 Inflation number: 2 The EUPHORA 3.5 x 30 Balloon ([id number]) was reinflated across the Prox RCA1, to 21 ZULAY for 0:10 (min:sec). 9:55:48 Balloon removed over the wire. 9:57:44 Stent catheter was removed intact over wire. 10:00:08 Place stent Inflation Number: 3 A GOKUL RX 3.5 x 15 stent ([id number]) was prepped and advanced across the Prox RCA1. The stent was deployed at 21 ZULAY for 0:10 (min:sec). 10:00:12 Stent catheter was removed intact over wire. 10:00:12 Wire removed. 10:00:13 Guide catheter removed. 10:00:19 EXOSEAL 7Fr (EX700) opened to sterile field. 10:00:28 Sheath removed intact; hemostasis achieved with Exoseal to the Right Femoral artery. 10::29 Procedure ended.(Physican Out) 10:00:37 Fluoroscopy time 04.80 minutes. 10:00:54 Flurop Dose total: 194.81 10::54 Fluoroscopy dose: 194.81 mGy 10:00:57 Contrast amount:Isovue 300 65ml. 10::59 Sharps counted by scrub and verified by R.N. 10:00:59 Insertion/operative site no bleeding no hematoma. 10:01:02 Post-op/insertion site Right Femoral artery dressed using a 4 x 4 and Tegaderm. 10:01:20 Post right femoral artery:stable, soft, clean and dry 10::21 Post Procedure Pulses reassessed and unchanged 10::23 Post-procedure physical assessment completed. ASA score P 2 - A patient with mild systemic disease as per Arnold Gardner MD. 10:01:25 Post procedure rhythm: unchanged. 10::29 Estimated blood loss: 10 ml 10::30 Post procedure instruction explained to patient.Patient verbalizes understanding. 10:01:30 Patient needs reinforcement of post procedure teaching. 10:01:31 Procedure and supply charges have been captured, reviewed, submitted and are correct. 10:02:11 Procedure Complication : No complications 10::13 Vital chart was stopped 10::13 See physician's report for complete and final results. 10::18 Report given to Pre/Post Procedure Room. 10:02:21 Patient transfered to Pre/Post Procedure Room with Stretcher. 10::23 Procedure ended. ::23 Full Disclosure recording stopped 10::27 End room use (Document Last) Intervention Summary Intervention Notes Time ActionType Lesion and Equipment Used Action# Pressure Duration Attributes 9:52:16 Discard GOKUL RX 3.5 x Stent 38 stent ([id number]) 9:55:19 Inflate Prox RCA1 EUPHORA 3.5 x 1 17 00:10 balloon 30 Balloon ([id number]) 9:55:32 Reinflate Prox RCA1 EUPHORA 3.5 x 2 21 00:10 balloon 30 Balloon ([id number]) 10:00:08 [address] stent Prox RCA1 GOKUL RX 3.5 x 3 21 00:10 15 stent ([id number]) Device Usage Item Name Manufacture Quantity Catalog Number Hospital Part Current M inimal Lot# / Charge Number Stock Stock Serial# Code ACIST Syringe Acist 1 09844 822902 847203 745044 2 0 (53023) Medical Systems Inc Bag Decanter Microtek 1 2001S 375434 12061 574895 5 (2001S) Medical Inc. Medline Cath Medline 1 [id number] 439380 55996 266593 5 Pack ([id number]) ACIST Hand Acist 1 01504 886319 284842 920688 5 Control Medical (75199) Systems Inc ACIST Manifold Acist 1 22762 197933 123512 295415 5 (55376) Medical Systems Inc Tegaderm 4 x 4 3M 1 1626W 059438 780103 247634 5 (1626W) DIAGNOSTIC St Chip 1 547263 804221 251967 648662 3 0 WIRE .035 260cm J wire (369389) SHEATH 7FR Terumo 1 [id number] 590881 376767 101475 5 [place] ([id number]) INFLATOR Merit Merit 1 OK5430 160778 722351 320932 1 5 [place] (WD3698) CHOICE PT [place] 1 [id number] 544009 541893 296155 5 Extra Support Scientific 182cm wire ([id number]) GUIDE 7FR HS I Medtronic 1 [id number] 795257 649919 403327 0 SH catheter ([id number]) GOKUL RX 3.5 x Medtronic 1 [id number] 439101 3454437 404354 5 [id number] 38 stent ([id number]) GUIDE 7FR AR Medtronic 1 [id number] 510637 931849 587333 0 2.0 SH catheter ([id number]) EUPHORA 3.5 x Medtronic 1 [id number] 528432 928077 050408 5 [id number] 30 Balloon ([id number]) GOKUL RX 3.5 x Medtronic 1 [id number] 763818 7193255 671680 5 [id number] 15 stent ([id number]) EXOSEAL 7Fr Cardinal 1 EX700 667584 634423 749106 5 (EX700) Health Signature Audit [place] Stage Time Signature Unsigned Intra-Procedure 12/30/2018 Tucker Nieves 10:03:12 AM RT(R) Signatures Monitor : Tucker Nieves RT Signature : Date : Time : [address] [place] [address]
[~2018-12-30 08:00] MED LIST changes: +NITROQUICK0.4 MG SL; +PLAVIX75 MG PO; +PRAVACHOL20 MG PO
[2018-12-30 08:25] VITALS: BP 98/64; Ht 180.3 cm; Wt 92.3 kg
[2018-12-30 08:44] LABS: CALC OSMOLALITY 290 mosm/kg (275-300); CALCIUM 9.2 mg/dL (8.5-10.1); CHLORIDE - SERUM 108 mmol/L (98-107); CREATININE - SERUM 0.8 mg/dL (0.6-1.3); GLUCOSE 93 mg/dL (74-106); POTASSIUM - SERUM 4.1 mmol/L (3.5-5.1); SODIUM 145 mmol/L (136-145); UREA NITROGEN 19 mg/dL (7-18); eGFR NON AFRICAN AMERICAN > 90 mL/min (90-120)
[2018-12-30 08:51] LABS: BASOPHILS 0.4 % (0-2); EOSINOPHILS 1.9 % (0-7); HEMATOCRIT 43.2 % (42.0-54.0); HEMOGLOBIN 15.2 g/dL (13.5-17.5); LYMPHOCYTES 23.8 % (15-50); MCH 31.7 pg (26.0-34.0); MCHC 35.2 g/dL (31.0-37.0); MEAN PLATELET VOLUME 12.8 fL (7.4-10.4); MONOCYTES 7.9 % (2-11); PLATELET COUNT 113 10x3/uL (130-400); RDW 13.8 % (11.5-14.5); WBC 5.7 10x3/uL (4.8-10.8)
--- NOTE | 2018-12-30 10:25 | NUR ---
2L NC, NO RESP DISTRESS. RIGHT GROIN 7F EXOSEAL CDI, NO BLEEDING OR HEMATOMA NOTED. NO C/O PAIN OR NAUSEA. VSS. FAMILY AT BEDSIDE, CALL LIGHT WITHIN REACH.
--- NOTE | 2018-12-30 10:55 | NUR ---
RIGHT GROIN 7F EXOSEAL CDI, NO BLEEDING OR HEMATOMA NOTED. 2L NC WITH NO RESP DISTRESS. NO C/O OR NEEDS VOICED AT THIS TIME. VSS. WILL CONTINUE TO MONITOR.
--- NOTE | 2018-12-30 11:10 | NUR ---
RESTING QUIETLY WITH EYES CLOSED. RIGHT GROIN 7F EXOSEAL CDI, NO BLEEDING OR HEMATOMA NOTED. DENIES ANY NEEDS AT THIS TIME. VSS. CALL LIGHT WITHIN REACH.
--- NOTE | 2018-12-30 11:40 | NUR ---
CONTINUES TO REST COMFORTABLY WITH NO C/O. RIGHT GROIN 7F EXOSEAL CDI, NO BLEEDING OR HEMATOMA NOTED. DENIES ANY NEEDS. VSS. CALL LIGHT WITHIN REACH.
--- NOTE | 2018-12-30 12:10 | NUR ---
PATIENT IS RESTING, VSS ON ROOM AIR. RIGHT GROIN DRESSING IS CDI, NO S/S OF BLEEDING OR HEMATOMA.
--- NOTE | 2018-12-30 12:40 | NUR ---
PATIENT RESTING, VSS ON ROOM AIR. RIGHT GROIN DRESSING IS CDI, NO S/S OF BLEEDING OR HEMATOMA. NO C/O PAIN.
--- NOTE | 2018-12-30 13:00 | NUR ---
HOB ELEVATED 30 DEGREES. RIGHT GROIN 7F EXOSEAL CDI, NO BLEEDING OR HEMATOMA NOTED. SIPPING ON DRINK AND EATING SANDWICH WITH NO C/O NAUSEA. VSS. WILL CONTINUE TO MONITOR.
--- NOTE | 2018-12-30 13:40 | NUR ---
LEFT PIV D/C'D WITH CATHETER INTACT, BAND AID TO SITE. RIGHT GROIN 7F EXOSEAL CDI, NO BLEEDING NOTED. UP TO BEDSIDE TO GET DRESSED.
--- NOTE | 2018-12-30 13:52 | NUR ---
DISCHARGE INSTRUCTIONS GIVEN, VERBALIZED UNDERSTANDING.
--- NOTE | 2018-12-30 14:05 | NUR ---
TAKEN VIA WHEELCHAIR TO RESTROOM AND THEN OUT. LEFT FACILITY WITH FAMILY AND ALL PERSONAL BELONGINGS.
--- NOTE | 2019-01-02 14:57 | OP ---
PATIENT NAME: JASBIR PEREZ MEDICAL RECORD: [id number] :50 LOCATION:D.CAT ADMISSION DATE: SURGEON: KAYLEY DINH MD DATE OF OPERATION: 12/30/2018 PROCEDURES: 1. PTCA stent RCA. 2. Selective coronary angiography. INDICATION: Angina and coronary artery disease. PROCEDURE IN DETAIL: After informed consent was obtained and after a detailed description of the risks, benefits as well as alternative therapies, the patient elected to proceed with angiogram and angioplasty. The right femoral area was prepped and draped in normal sterile fashion. Right femoral artery was cannulated via modified Seldinger technique with placement of 7-Hungarian sheath. All catheters exchanged through this sheath. FINDINGS: The right coronary artery has multiple areas of 80% stenosis. PTCA STENT OF THE RCA: The stent used was a 3.5 x 38 and 3.5 x 15, both Sandip stents. Result was 0% residual stenosis. OVERALL IMPRESSION: Successful percutaneous transluminal coronary angioplasty stent of the right coronary artery going from multiple areas of 90% initial stenosis to 0% residual. 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
--- NOTE | 2019-01-02 14:57 | HP ---
PATIENT: JASBIR PEREZ MEDICAL RECORD: [id number] ACCOUNT: [id number] LOCATION:[facility] : 50 ADMISSION DATE: 12/30/18 PCP: CASA SHERIFF DO HISTORY AND PHYSICAL EXAMINATION DIAGNOSES: 1. Angina. 2. Coronary artery disease. 3. PTCA and stent, LAD and left circumflex, with concomitant disease in RCA. 4. Hypertension. 5. Hyperlipidemia. HISTORY: Mr. Perez presents with unstable anginal symptomatology, found to have 3-vessel coronary artery disease, underwent successful PTCA and stent of LAD and left circumflex. He is now brought back for PTCA and stent of the RCA. PHYSICAL EXAMINATION: GENERAL APPEARANCE: Well-nourished, well-developed, appears stated age. Level of distress, comfortable. PSYCHIATRIC: Mental status, alert, normal affect. Orientation, oriented to time, place and person. EYES: Lids and conjunctiva, noninjected. No discharge, no pallor. ENT: Lips, teeth, gums, normal dentition. Oropharynx, no cyanosis, no pallor. NECK: Carotid arteries, bilateral normal upstroke, no bruits, no thrills. JUGULAR VEINS: No jugular venous pressure or distention. CERVICAL LYMPH NODES: Nontender, nonenlarged. THYROID: Not enlarged. Nontender. No nodules. LUNGS: Respiratory effort, unlabored. CHEST: Normal curvature. No thoracic deformity. No chest wall tenderness. Percussion, resonant. Auscultation, clear. No wheezes, no rales, no rhonchi. CARDIOVASCULAR: Precordial exam, nondisplaced. No heaves or pericardial thrills. Rate and rhythm, regular. Heart sounds, normal S1, normal S2. No S3, no gallop, no rub. Systolic murmur, not heard. Diastolic murmur, not heard. EXTREMITIES: No cyanosis, no edema. Peripheral pulses, full and equal in all extremities, except as noted. No bruits appreciated. ABDOMEN: Soft, nondistended. Normal aorta. No bruit. Nontender. No masses. Liver, nontender, no hepatomegaly. Spleen, nontender, no splenomegaly. MUSCULOSKELETAL: No joint tenderness. No joint swelling. No erythema. NEUROLOGICAL: Normal gait, normal strength, normal tone. SKIN: Warm and dry. OVERALL IMPRESSION: Anginal symptomatology with significant disease of the RCA. We will proceed with PTCA and stent of the RCA. 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 CLI 12/30/[address] [address]
== END 2018-12-30 14:05 | disposition home or self-care (01) ==
LOC: D.CATH 08:00
PROVIDERS: ATTEND Internal Medicine Interventional Cardiology
DX: I25.110 Atherosclerotic heart disease of native coronary artery with unstable angina pectoris (principal); Z95.5 Presence of coronary angioplasty implant and graft; I10 Essential (primary) hypertension; E78.5 Hyperlipidemia, unspecified; Z01.812 Encounter for preprocedural laboratory examination